=== PATIENT | female | born 1970 | race African-American/Black ===

== ENCOUNTER 2017-12-31 23:21 | Emergency (ER) | payer MEDICARE ==
[~2017-12-31] VITALS: Ht 165.1 cm; Wt 63.0 kg
[2017-12-31 23:34] VITALS: BP 125/77
== END 2018-01-01 04:30 | disposition left against medical advice (07) ==
LOC: ER 23:21
DX: Z53.21 Procedure and treatment not carried out due to patient leaving prior to being seen by health care provider (principal)

== ENCOUNTER 2018-01-05 21:59 | Emergency (ER) | payer MEDICARE ==
[~2018-01-05] VITALS: Ht 162.6 cm; Wt 62.0 kg
[2018-01-05 22:00] VITALS: BP 120/71
== END 2018-01-06 03:15 | disposition left against medical advice (07) ==
LOC: ER 21:59
DX: R51 Headache (principal); Z53.21 Procedure and treatment not carried out due to patient leaving prior to being seen by health care provider

== ENCOUNTER 2018-01-06 21:45 | Emergency (ER) | payer MEDICARE ==
[~2018-01-06] VITALS: Ht 162.6 cm; Wt 63.0 kg
[2018-01-06 21:49] VITALS: BP 142/83
== END 2018-01-07 01:20 | disposition left against medical advice (07) ==
LOC: ER 21:45
DX: Z53.21 Procedure and treatment not carried out due to patient leaving prior to being seen by health care provider (principal)

== ENCOUNTER 2018-01-12 22:11 | Emergency (ER) | payer MEDICARE ==
[~2018-01-12] VITALS: Ht 157.5 cm; Wt 54.0 kg
[2018-01-12 22:25] VITALS: BP 117/68
== END 2018-01-12 22:52 | disposition left against medical advice (07) ==
LOC: ER 22:11
DX: Z53.21 Procedure and treatment not carried out due to patient leaving prior to being seen by health care provider (principal)

== ENCOUNTER 2018-01-13 21:55 | Emergency (ER) | payer MEDICARE ==
[~2018-01-13] VITALS: Ht 165.1 cm; Wt 59.0 kg
[2018-01-13 22:01] VITALS: BP 135/86
== END 2018-01-14 00:37 | disposition left against medical advice (07) ==
LOC: ER 22:33
DX: Z53.21 Procedure and treatment not carried out due to patient leaving prior to being seen by health care provider (principal)

== ENCOUNTER 2018-01-14 03:44 | Emergency (ER) | payer MEDICARE ==
[~2018-01-14] VITALS: Ht 165.1 cm; Wt 56.0 kg
[2018-01-14 03:50] VITALS: BP 141/73
== END 2018-01-14 06:51 | disposition left against medical advice (07) ==
LOC: ER 04:02
DX: Z53.21 Procedure and treatment not carried out due to patient leaving prior to being seen by health care provider (principal)

== ENCOUNTER 2018-01-15 00:21 | Emergency (ER) | payer SELFPAY ==
[~2018-01-15] VITALS: Ht 165.1 cm; Wt 64.0 kg
[2018-01-15 00:36] VITALS: BP 131/77
== END 2018-01-15 02:50 | disposition left against medical advice (07) ==
LOC: ER 00:21
DX: R52 Pain, unspecified (principal); Z53.21 Procedure and treatment not carried out due to patient leaving prior to being seen by health care provider

== ENCOUNTER 2018-01-16 01:20 | Emergency (ER) | payer SELFPAY ==
[~2018-01-16] VITALS: Ht 165.1 cm; Wt 56.0 kg
[2018-01-16 01:29] VITALS: BP 133/70
== END 2018-01-16 06:00 | disposition left against medical advice (07) ==
LOC: ER 01:20
DX: Z53.21 Procedure and treatment not carried out due to patient leaving prior to being seen by health care provider (principal)

== ENCOUNTER 2018-01-16 21:41 | Emergency (ER) | payer SELFPAY ==
[~2018-01-16] VITALS: Ht 165.1 cm; Wt 57.0 kg
[2018-01-16 21:58] VITALS: BP 120/71
== END 2018-01-17 08:34 | disposition left against medical advice (07) ==
LOC: ER 21:41
DX: D64.9 Anemia, unspecified (principal); Z53.21 Procedure and treatment not carried out due to patient leaving prior to being seen by health care provider

== ENCOUNTER 2018-01-17 21:01 | Emergency (ER) | payer SELFPAY ==
[~2018-01-17] VITALS: Ht 165.1 cm; Wt 57.0 kg
[2018-01-17 23:02] VITALS: BP 115/69
== END 2018-01-18 06:17 | disposition left against medical advice (07) ==
LOC: ER 21:01
DX: R42 Dizziness and giddiness (principal); Z53.21 Procedure and treatment not carried out due to patient leaving prior to being seen by health care provider

== ENCOUNTER 2018-01-21 20:46 | Emergency (ER) | payer SELFPAY ==
[~2018-01-21] VITALS: Ht 165.1 cm; Wt 63.0 kg
[2018-01-21 21:14] VITALS: BP 117/73
== END 2018-01-22 00:23 | disposition left against medical advice (07) ==
LOC: ER 21:31
DX: Z53.21 Procedure and treatment not carried out due to patient leaving prior to being seen by health care provider (principal)

== ENCOUNTER 2018-01-23 00:46 | Emergency (ER) | payer SELFPAY | END 2018-01-23 01:39 | disposition left against medical advice (07) | LOC: ER 00:46 | DX: Z53.21 Procedure and treatment not carried out due to patient leaving prior to being seen by health care provider (principal); Z88.0 Allergy status to penicillin ==

== ENCOUNTER 2018-01-23 23:35 | Emergency (ER) | payer SELFPAY | END 2018-01-24 00:46 | disposition left against medical advice (07) | LOC: ER 23:35 | DX: I95.9 Hypotension, unspecified (principal); Z53.21 Procedure and treatment not carried out due to patient leaving prior to being seen by health care provider ==

== ENCOUNTER 2018-01-24 19:51 | Emergency (ER) | payer MEDICARE ==
[~2018-01-24] VITALS: Ht 165.1 cm; Wt 59.0 kg
[2018-01-24 21:07] VITALS: BP 119/68
== END 2018-01-25 07:44 | disposition left against medical advice (07) ==
LOC: ER 19:51
DX: D64.9 Anemia, unspecified (principal); R17 Unspecified jaundice; R53.1 Weakness
CPT/HCPCS: 99281

== ENCOUNTER 2018-01-26 00:59 | Emergency (ER) | payer SELFPAY ==
[~2018-01-26] VITALS: Ht 165.1 cm; Wt 59.0 kg
[2018-01-26 01:24] VITALS: BP 123/68
== END 2018-01-26 04:24 | disposition left against medical advice (07) ==
LOC: ER 00:59
DX: I95.9 Hypotension, unspecified (principal); Z53.21 Procedure and treatment not carried out due to patient leaving prior to being seen by health care provider

== ENCOUNTER 2018-01-26 20:42 | Emergency (ER) | payer SELFPAY ==
[~2018-01-26] VITALS: Ht 165.1 cm; Wt 56.0 kg
[2018-01-26 21:10] VITALS: BP 131/78
== END 2018-01-26 23:55 | disposition left against medical advice (07) ==
LOC: ER 20:42
DX: I95.9 Hypotension, unspecified (principal); Z53.21 Procedure and treatment not carried out due to patient leaving prior to being seen by health care provider

== ENCOUNTER 2018-01-27 01:27 | Emergency (ER) | payer SELFPAY | END 2018-01-27 02:00 | disposition left against medical advice (07) | LOC: ER 01:27 | DX: R10.9 Unspecified abdominal pain (principal); Z53.21 Procedure and treatment not carried out due to patient leaving prior to being seen by health care provider ==

== ENCOUNTER 2018-01-27 19:55 | Emergency (ER) | payer SELFPAY ==
[~2018-01-27] VITALS: Ht 165.1 cm; Wt 55.0 kg
[2018-01-28 03:05] VITALS: BP 119/68
== END 2018-01-28 06:11 | disposition left against medical advice (07) ==
LOC: ER 21:26
DX: Z53.21 Procedure and treatment not carried out due to patient leaving prior to being seen by health care provider (principal); Z88.0 Allergy status to penicillin

== ENCOUNTER 2018-01-28 22:58 | Emergency (ER) | payer SELFPAY | END 2018-01-29 06:16 | disposition left against medical advice (07) | LOC: ER 22:58 | DX: Z53.21 Procedure and treatment not carried out due to patient leaving prior to being seen by health care provider (principal) ==

== ENCOUNTER 2018-02-27 04:33 | Emergency (ER) | payer SELFPAY | END 2018-02-27 07:00 | disposition left against medical advice (07) | LOC: ER 04:33 | DX: Z53.21 Procedure and treatment not carried out due to patient leaving prior to being seen by health care provider (principal) ==

== ENCOUNTER 2018-02-28 22:41 | Emergency (ER) | payer SELFPAY ==
[~2018-02-28] VITALS: Ht 165.1 cm; Wt 57.0 kg
[2018-03-01 01:05] VITALS: BP 148/86
== END 2018-03-01 07:36 | disposition left against medical advice (07) ==
LOC: ER 22:41
DX: R03.1 Nonspecific low blood-pressure reading (principal); Z53.21 Procedure and treatment not carried out due to patient leaving prior to being seen by health care provider

== ENCOUNTER 2018-03-02 04:09 | Emergency (ER) | payer SELFPAY ==
[~2018-03-02] VITALS: Ht 160 cm; Wt 57.0 kg
[2018-03-02 04:30] VITALS: BP 125/74
== END 2018-03-02 09:22 | disposition left against medical advice (07) ==
LOC: ER 04:09
DX: R53.1 Weakness (principal); R53.83 Other fatigue; Z53.21 Procedure and treatment not carried out due to patient leaving prior to being seen by health care provider

== ENCOUNTER 2018-03-03 05:14 | Emergency (ER) | payer SELFPAY ==
[~2018-03-03] VITALS: Ht 165.1 cm; Wt 57.0 kg
[2018-03-03 05:18] VITALS: BP 139/77
== END 2018-03-03 07:53 | disposition left against medical advice (07) ==
LOC: ER 05:14
DX: R03.1 Nonspecific low blood-pressure reading (principal); D64.9 Anemia, unspecified; Z53.21 Procedure and treatment not carried out due to patient leaving prior to being seen by health care provider

== ENCOUNTER 2018-03-04 00:53 | Emergency (ER) | payer SELFPAY ==
[~2018-03-04] VITALS: Ht 167.6 cm; Wt 73.0 kg
[2018-03-04 01:05] VITALS: BP 134/71
== END 2018-03-04 07:52 | disposition left against medical advice (07) ==
LOC: ER 02:42
DX: R11.2 Nausea with vomiting, unspecified (principal); Z53.21 Procedure and treatment not carried out due to patient leaving prior to being seen by health care provider

== ENCOUNTER 2018-03-04 21:02 | Emergency (ER) | payer SELFPAY | END 2018-03-05 01:58 | disposition left against medical advice (07) | LOC: ER 03-05 01:07 | DX: Z53.21 Procedure and treatment not carried out due to patient leaving prior to being seen by health care provider (principal) ==

== ENCOUNTER 2018-03-05 20:51 | Emergency (ER) | payer SELFPAY ==
[~2018-03-05] VITALS: Ht 165.1 cm; Wt 58.0 kg
[2018-03-05 21:03] VITALS: BP 119/78
== END 2018-03-06 01:24 | disposition left against medical advice (07) ==
LOC: ER 21:27
DX: Z53.21 Procedure and treatment not carried out due to patient leaving prior to being seen by health care provider (principal)

== ENCOUNTER 2018-03-06 04:05 | Emergency (ER) | payer SELFPAY ==
[~2018-03-06] VITALS: Ht 162.6 cm; Wt 66.0 kg
[2018-03-06 04:08] VITALS: BP 118/71
== END 2018-03-06 04:30 | disposition left against medical advice (07) ==
LOC: ER 04:28
DX: I95.9 Hypotension, unspecified (principal); Z53.21 Procedure and treatment not carried out due to patient leaving prior to being seen by health care provider

== ENCOUNTER 2018-03-07 02:00 | Emergency (ER) | payer SELFPAY ==
[~2018-03-07] VITALS: Ht 157.5 cm; Wt 77.0 kg
[2018-03-07 02:03] VITALS: BP 170/84
== END 2018-03-07 03:30 | disposition left against medical advice (07) ==
LOC: ER 02:03
DX: J00 Acute nasopharyngitis [common cold] (principal); Z53.21 Procedure and treatment not carried out due to patient leaving prior to being seen by health care provider

== ENCOUNTER 2018-03-07 21:01 | Emergency (ER) | payer SELFPAY ==
[~2018-03-07] VITALS: Ht 165.1 cm; Wt 63.0 kg
[2018-03-07 21:26] VITALS: BP 133/86
== END 2018-03-07 21:32 | disposition left against medical advice (07) ==
LOC: ER 21:06
DX: S69.91XA Unspecified injury of right wrist, hand and finger(s), initial encounter (principal); Z53.21 Procedure and treatment not carried out due to patient leaving prior to being seen by health care provider; X58.XXXA Exposure to other specified factors, initial encounter; Y93.89 Activity, other specified; Y92.89 Other specified places as the place of occurrence of the external cause; Y99.8 Other external cause status

== ENCOUNTER 2018-03-07 21:43 | Emergency (ER) | payer SELFPAY ==
[~2018-03-07] VITALS: Ht 165.1 cm; Wt 59.0 kg
[2018-03-07 21:59] VITALS: BP 142/60
== END 2018-03-07 23:31 | disposition home or self-care (01) ==
LOC: ER 23:09
DX: Z00.8 Encounter for other general examination (principal); Z88.0 Allergy status to penicillin
CPT/HCPCS: 99283

== ENCOUNTER 2018-03-08 00:17 | Emergency (ER) | payer SELFPAY ==
[~2018-03-08] VITALS: Ht 165.1 cm; Wt 58.0 kg
[2018-03-08 00:29] VITALS: BP 131/73
== END 2018-03-08 05:00 | disposition left against medical advice (07) ==
LOC: ER 01:12
DX: R42 Dizziness and giddiness (principal); Z53.21 Procedure and treatment not carried out due to patient leaving prior to being seen by health care provider